=== PATIENT | male | born 2000 | race African-American/Black ===

== ENCOUNTER 2018-11-04 21:25 | Emergency (ER) | payer OTHER ==
[2018-11-04 21:31] VITALS: BP 132/81; PULSE 88; TEMP 99.1; BMI 21.0
--- NOTE | 2018-11-04 21:34 | PDOC ---
Rapid Medical Evaluation Chief Complaint: Eye Problem Time Seen by Provider: 11/04/18 21:30 Medical Evaluation: Allergies Allergy/AdvReac Type Severity Reaction Status Date / Time No Known Allergies Allergy Verified 06/03/14 23:45 11/04/18 21:30 I have performed a brief in-person evaluation of this patient. The patient presents with a chief complaint of: right eye pain and scratiness - felt FB land in eye this am- no relief with water rinsing Pertinent physical exam findings: injected with no noted FB/ visula acuity wnl I have ordered the following: nothing The patient will proceed to the ED for further evaluation. Discharge Disposition - Diagnosis Eye foreign body - Referrals - Patient Instructions - Post Discharge Activity
[2018-11-04] MEDS ORDERED: TETRACAINE 0.5% HCL 0.6ML DROPPER.BOTTLE OU ONE (22:08)
[2018-11-04] MEDS ORDERED: ERYTHROMYCIN 0.5% OPHTHALMIC OINTMENT 3.5 GM TUBE OU ONE (22:08)
[2018-11-04] MEDS ORDERED: FLUORESCEIN NA 1 EA STRIP OU ONE (22:08)
--- NOTE | 2018-11-04 22:15 | PDOC ---
History of Present Illness - General Chief Complaint: Eye Problem Stated Complaint: EYE INJURY Time Seen by Provider: 11/04/18 21:30 History Source: Patient - History of Present Illness Initial Comments: 11/04/18 22:12 18 year old male with right eye redness and pain after dust fell in eye this morning. no vision changes, no pmhx Past History - Past Medical History Allergies/Adverse Reactions: Allergies Allergy/AdvReac Type Severity Reaction Status Date / Time No Known Allergies Allergy Verified 06/03/14 23:45 Home Medications: Ambulatory Orders Ibuprofen [Motrin] 600 mg PO TID #20 tablet 06/04/14 Ondansetron [Zofran *Odt*] 4 mg SL TID #30 od.tablet 06/04/14 COPD: No - Suicide/Smoking/Psychosocial Hx Smoking History: Never smoked Have you smoked in the past 12 months: No Hx Alcohol Use: No Substance Use Type: None Review of Systems - Review of Systems Able to Perform ROS?: Yes Is the patient limited Arabic proficient: No HEENTM: Yes: Eye Pain (right) *Physical Exam - Vital Signs Last Vital Signs Temp Pulse Resp BP Pulse Ox 99.1 F 88 18 132/81 98 11/04/18 21:29 11/04/18 21:29 11/04/18 21:29 11/04/18 21:29 11/04/18 21:29 - Physical Exam General Appearance: Yes: Appropriately Dressed HEENT: positive: Other (right eye erythema + fluroscein uptake to conjunctiva and pupils. snellen 20/20) Medical Decision Making - Medical Decision Making 11/04/18 22:16 A: corneal abrasion P: fluroscein erythromycin *DC/Admit/Observation/Transfer Diagnosis at time of Disposition: Right corneal abrasion Qualifiers: Encounter type: initial encounter Qualified Code(s): S05.01XA - Injury of conjunctiva and corneal abrasion without foreign body, right eye, initial encounter - Discharge Dispostion Disposition: HOME - Referrals Referrals: Rosario Stanton MD [Primary Care Provider] - Lul Ceja MD [Staff Physician] - 24 hours - Patient Instructions Printed Discharge Instructions: DI for Corneal Abrasion Additional Instructions: use erythromycin as prescribed need to follow up with ophthalmology as soon as possible return to the ER for any worsening symptoms. - Post Discharge Activity
[2018-11-04] MEDS ORDERED: ERYTHROMYCIN 0.5% OPHTHALMIC OINTMENT 3.5 GM TUBE ONE (22:27)
== END 2018-11-04 22:32 | disposition home or self-care (01) ==
LOC: JERFT 21:25
PROC: 4A07X0Z Measurement of Visual Acuity, External Approach (ICD-10-PCS; principal; 2018-11-04)
DX: S05.01XA Injury of conjunctiva and corneal abrasion without foreign body, right eye, initial encounter (principal); X58.XXXA Exposure to other specified factors, initial encounter; Y93.89 Activity, other specified; Y92.89 Other specified places as the place of occurrence of the external cause; Y99.8 Other external cause status
CPT/HCPCS: 99281-25